=== PATIENT | male | born 2000 | race Caucasian/White ===

== ENCOUNTER 2024-01-11 20:13 | Observation (INO) | payer SELFPAY ==
[2024-01-11] MEDS ORDERED: Zofran 4 MG/2 ML VIAL ONE (20:56)
[2024-01-11] MEDS ORDERED: MORPHINE SULFATE 2 MG INJ ONE (20:56)
[2024-01-11] MEDS ORDERED: Sodium Chloride 0.9% 1000 ML 1,000 ML ONE (20:56)
[2024-01-11] MEDS: MORPHINE SULFATE 2 MG INJ IV ONE (21:01)
[2024-01-11] MEDS: Zofran 4 MG/2 ML VIAL IV ONE (21:01)
[2024-01-11] MEDS: Sodium Chloride 0.9% 1000 ML 1,000 ML IV STA (21:01)
[2024-01-11 21:05] LABS: Absolute Neutrophil Ct (ANC) 11.06 x10^3/uL (1.78-5.38); BASOPHIL % 0.6 % (0.2-1.2); Basophil (Absolute #) 0.08 x10^3/uL (0.01-0.08); Eosinophil % 0.1 % (0.8-7.0); Eosinophil (Absolute #) 0.01 x10^3/uL (0.04-0.54); Hematocrit 53.5 % (40.1-51.0); Hemoglobin 18.8 g/dL (13.7-17.5); IMMATURE GRAN # 0.06 x10^3u/L (0.001-0.031); IMMATURE GRAN % 0.5 % (0.001-0.429); Lymphocyte (Absolute #) 0.87 x10^3/uL (1.32-3.57); Lymphocytes % 6.9 % (21.8-53.1); Mean Cell Volume 90.1 fL (79.0-92.2); Mean Corpuscular Hemoglobin 31.6 pg (25.7-32.2); Mean Corpuscular Hgb Concent. 35.1 g/dL (32.3-36.5); Monocyte (Absolute #) 0.48 x10^3/uL (0.30-0.82); Monocytes % 3.8 % (5.3-12.2); Neutrophil % 88.1 % (34.0-67.9); Platelet Count 291 x10^3/uL (163-337); Red Blood Count 5.94 x10^6/uL (4.63-6.08); Red Cell Distribution Width 12.1 % (11.6-14.4); White Blood Count 12.6 x10^3/uL (4.23-9.07)
[2024-01-11 21:19] LABS: ALKALINE PHOSPHATASE 149 U/L (38-126); ANION GAP 35.8 MEQ/L (5-15); BLOOD UREA NITROGEN 28 mg/dL (9-20); CHLORIDE 97 mmol/L (98-107); CK-Creatinine Phosphokinase 84 U/L (55-170); Calcium 11.4 mg/dL (8.4-10.2); Creatinine 1 2.16 mg/dL (0.66-1.25); EST GLOMERULAR FILTRATION RATE 43.3 ML/MIN; Glucose 187 mg/dL (74-106); LIPASE 50 U/L (23-300); Potassium 4.6 mmol/L (3.5-5.1); SGOT/AST 49 U/L (17-59); SGPT/ALT 42 U/L (0-50); SODIUM 138 mmol/L (135-145); Total Protein 10.2 g/dL (6.3-8.2)
--- NOTE | 2024-01-11 21:24 | ERPHSYRPT ---
- History of Present Illness Time Seen by Provider: 01/11/24 20:25 Historian: patient Exam Limitations: no limitations Patient Subjective Stated Complaint: pt states he has been trying to cut weight for a fight tomorrow and after he started drinking and eating tonight, he got began vomiting and having abd cramping Triage Nursing Assessment: pt alert and oriented, answers questions approp. pt ambulates into room with steady gait noted. respirations nonlabored. abd soft, pt reports no tenderness with light palpation. bowel sounds hypo Physician History: 23yo m presents via private vehicle for vomiting that started roughly 1h [employer]. Pt reports he has been aggressively trying to lose weight for a wrestling match tomorrow for the past 2wks, states he lost 5lbs today by exercising vigorously while wearing trash bags to sweat more. Pt reports he attempted to drink some pedialyte just before he started vomiting, other than that he had not had any food and very limited water since 13:00 on 01/10/24. Pt reports some diffuse abdominal cramping and dry heaving. Pt reports his emesis was watery in nature, NBNB. Pt reports mild [place] and significant fatigue. Timing/Duration: today Activities at Onset: none Quality: cramping Abdominal Pain Onset Location: generalized abdomen Pain Radiation: no radiation Severity of Pain-Max: mild Severity of Pain-Current: mild Modifying Factors: Improves With: nothing Associated Symptoms: fatigue, nausea, vomiting, No chest pain, No fever/chills, No rash, No shortness of breath Previous symptoms: no prior history Allergies/Adverse Reactions: No Known Drug Allergies Allergy (Verified 01/11/24 20:55) Home Medications: No Reportable Medications [No Reported Medications] 01/11/24 [History] Hx Tetanus, Diphtheria Vaccination/Date Given: Yes Hx Influenza Vaccination/Date Given: No Hx Pneumococcal Vaccination/Date Given: No Immunizations Up to Date: Yes Travel Risk - International Travel Have you traveled outside of the country in past 3 weeks: No - Emerging Infectious Disease Are you exhibiting symptoms associated with any current EIDs: No - Review of Systems Constitutional: Fatigue Eyes: No Symptoms Ears, Nose, & Throat: No Symptoms Respiratory: No Symptoms Cardiac: No Symptoms Abdominal/Gastrointestinal: Abdominal Pain, Nausea, Vomiting Genitourinary Symptoms: No Symptoms Musculoskeletal: No Symptoms Neurological: No Symptoms - Past Medical History Pertinent Past Medical History: Yes - Past Surgical History Past Surgical History: No - Social History Smoking Status: Current every day smoker How long have you smoked: 6 yrs Exposure to second hand smoke: Yes Drug Use: none - Social Determinants of Health Will the patient participate in the screening: Declined to provide - Nursing Vital Signs Nursing Vital Signs: Initial Vital Signs Temperature 96.3 F 01/11/24 20:23 Pulse Rate 57 L 01/11/24 20:23 Respiratory Rate 20 01/11/24 20:23 Blood Pressure 150/100 01/11/24 20:23 O2 Sat by Pulse Oximetry 99 01/11/24 20:23 Pain Scale Pain Intensity 7 - Physical Exam General Appearance: no apparent distress, alert Eye Exam: PERRL/EOMI, eyes nml inspection Ears, Nose, Throat Exam: dry mucous membranes Respiratory Exam: normal breath sounds, lungs clear, airway intact, No chest tenderness, No respiratory distress Cardiovascular Exam: regular rate/rhythm, normal peripheral pulses, capillary refill >3 sec Gastrointestinal/Abdomen Exam: soft, normal bowel sounds, No tenderness, No dist ention, No mass, No guarding, No rebound, No hernia Neurologic Exam: alert, oriented x 3, cooperative Skin Exam: normal color, warm, dry SpO2 Interpretation: normal SpO2: 99 O2 Delivery: Room Air Ordered Tests: Active Orders 24 hr Category Date Time Status CBC W DIFF Stat Lab 01/11/24 20:50 Completed CK-Creatinine Phosphokinase Stat Lab 01/11/24 20:50 Completed CMP Stat Lab 01/11/24 20:50 Completed LIPASE Stat Lab 01/11/24 20:50 Completed UA W/RFX UR CULTURE Stat Lab 01/11/24 20:39 Ordered Medication Summary Generic Name Dose Route Start Last Admin Trade Name Freq PRN Reason Stop Dose Admin Sodium Chloride 1,000 mls @ 200 mls/hr 01/11/24 21:45 01/11/24 22:12 Sodium Chloride 0.9% 1000 Ml IV 02/10/24 21:44 200 mls/hr .Q5H MAXIMINO Administration Discontinued Medications Generic Name Dose Route Start Last Admin Trade Name Freq PRN Reason Stop Dose Admin Droperidol 1.25 mg 01/11/24 21:29 01/11/24 21:35 Droperidol 5 Mg/2 Ml Vial IV 01/11/24 21:30 1.25 mg STAT ONE Administration Droperidol Confirm 01/11/24 21:33 Droperidol 5 Mg/2 Ml Vial Administered 01/11/24 21:34 Dose 5 mg .ROUTE .STK-MED ONE Sodium Chloride 1,000 mls @ 999 mls/hr 01/11/24 20:38 01/11/24 21:01 Sodium Chloride 0.9% 1000 Ml IV 01/11/24 21:38 999 mls/hr .Q1H1M STA Administration Sodium Chloride Confirm 01/11/24 20:56 Sodium Chloride 0.9% 1000 Ml Administered 01/11/24 20:57 Dose 1,000 mls @ ud .ROUTE .STK-MED ONE Morphine Sulfate 2 mg 01/11/24 20:53 01/11/24 21:01 Morphine Sulfate 2 Mg/Ml Inj IV 01/11/24 20:54 2 mg STAT ONE Administration Morphine Sulfate Confirm 01/11/24 20:56 Morphine Sulfate 2 Mg/Ml Inj Administered 01/11/24 20:57 Dose 2 mg .ROUTE .STK-MED ONE Ondansetron HCl 4 mg 01/11/24 20:38 01/11/24 21:01 Ondansetron Hcl 4 Mg/2 Ml Vial IV 01/11/24 20:39 4 mg STAT ONE Administration Ondansetron HCl Confirm 01/11/24 20:56 Ondansetron Hcl 4 Mg/2 Ml Vial Administered 01/11/24 20:57 Dose 4 mg .ROUTE .STK-MED ONE Lab/Rad Data: Laboratory Result Diagrams 01/11/24 20:50 01/11/24 20:50 Laboratory Results 01/11/24 01/11/24 01/11/24 Range/Units 21:00 20:50 20:50 WBC 12.6 H (4.23-9.07) x10^3/uL RBC 5.94 (4.63-6.08) x10^6/uL Hgb 18.8 H (13.7-17.5) g/dL Hct 53.5 H (40.1-51.0) % MCV 90.1 (79.0-92.2) fL MCH 31.6 (25.7-32.2) pg MCHC 35.1 (32.3-36.5) g/dL RDW 12.1 (11.6-14.4) % Plt Count 291 (163-337) x10^3/uL MPV 11.0 (9.4-12.4) fL Gran % 88.1 H (34.0-67.9) % Immature Gran % (Auto) 0.5 H (0.001-0.429) % Nucleat RBC Rel Count 0.0 (0.00-0.2) % Eos # (Auto) 0.01 L (0.04-0.54) x10^3/uL Immature Gran # (Auto) 0.06 H (0.001-0.031) x10^3u/L Absolute Lymphs (auto) 0.87 L (1.32-3.57) x10^3/uL Absolute Monos (auto) 0.48 (0.30-0.82) x10^3/uL Absolute Nucleated RBC 0.00 (0.00-0.012) x10^3u/L Lymphocytes % 6.9 L (21.8-53.1) % Monocytes % 3.8 L (5.3-12.2) % Eosinophils % 0.1 L (0.8-7.0) % Basophils % 0.6 (0.2-1.2) % Absolute Granulocytes 11.06 H (1.78-5.38) x10^3/uL Basophils # 0.08 (0.01-0.08) x10^3/uL Sodium 138 (135-145) mmol/L Potassium 4.6 (3.5-5.1) mmol/L Chloride 97 L (98-107) mmol/L Carbon Dioxide 11 L* (22-30) mmol/L Anion Gap 35.8 H (5-15) MEQ/L BUN 28 H (9-20) mg/dL Creatinine 2.16 H (0.66-1.25) mg/dL Estimated GFR 43.3 ML/MIN Glucose 187 H (74-106) mg/dL Calcium 11.4 H (8.4-10.2) mg/dL Total Bilirubin 2.00 H (0.2-1.3) mg/dL AST 49 (17-59) U/L ALT 42 (0-50) U/L Alkaline Phosphatase 149 H (38-126) U/L Creatine Kinase 84 (55-170) U/L Serum Total Protein 10.2 H (6.3-8.2) g/dL Albumin > 6.0 H (3.5-5.0) g/dL Lipase 50 (23-300) U/L Influenza Type A Ag NEGATIVE (NEGATIVE) Influenza Type B Ag NEGATIVE (NEGATIVE) RSV (PCR) NEGATIVE (NEGATIVE) SARS-CoV-2 (PCR) NEGATIVE (NEGATIVE) - Progress Progress: improved Progress Note: 01/11/24 22:13 labs suggestive of significant dehydration CK not suggestive of rhabdomyolisis mild improvement w/ fluids and droperidol i discussed admission to obs for continued IV fluids w/ Dr Kim who is willing to accept pt agreeable, i recommend that pt not participate in his match tomorrow 2 his current medical condition 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
[2024-01-11 21:31] LABS: ALBUMIN > 6.0 g/dL (3.5-5.0); Carbon Dioxide 11 mmol/L (22-30)
[2024-01-11 21:50] LABS: INFLUENZA A NEGATIVE (NEGATIVE); INFLUENZA B NEGATIVE (NEGATIVE); RESPIRATORY SYNCTIAL VIRUS NEGATIVE (NEGATIVE); SARS-CoV-2 Xpert Express NEGATIVE (NEGATIVE)
[2024-01-11] MEDS: Sodium Chloride 0.9% 1000 ML 1,000 ML IV SCH (22:12)
--- NOTE | 2024-01-11 23:50 | PCM.HP ---
History of Present Illness - Chief Complaint Chief Complaint: dehydration; nausea/vomiting Date: 01/11/24 History of Present Illness: Mr. SALTER is a 23 year old male without significant past medical history who was preparing for a MMA fight by trying to drop five pounds rapidly so he was exercising while wearing a trash bag and not eating/drinking much. He presented to the ER with complaints of tremors, and was found to have an elevated creatinine of 2.2 associated with a bicarb of 11. Bilirubin was high, calcium was 11.4 and albumin > 6. He is resting in bed, has some vague lower abdominal pain, associated with significant nausea and vomiting, but no diarrhea. No dysuria, hematuria or foamy urine. He does not take creatine supplements or NSAIDs regularly. - Review of Systems Constitutional: Chills, No Fever Ears, Nose, & Throat: No Epistaxis Respiratory: No Cough, No Orthopnea, No Short Of Breath Cardiac: No Chest Pain, No Edema Abdominal/Gastrointestinal: Abdominal Pain, Nausea, Vomiting Genitourinary Symptoms: No Dysuria, No Frequency, No Hematuria Musculoskeletal: Myalgias Skin: No Symptoms Neurological: Tremors Psychological: No Alcohol Abuse, No Drug Abuse Endocrine: No Cold Intolerance, No Excessive Sweating Hematologic/Lymphatic: No Easy Bruising Medications & Allergies Home Medications: Home Medication List No Reportable Medications [No Reported Medications] 01/11/24 [History Confirmed 01/11/24] Allergies/Adverse Reactions: Allergies Allergy/AdvReac Type Severity Reaction Status Date / Time No Known Drug Allergies Allergy Verified 01/11/24 20:55 - Past Medical History Past Medical History: Yes - Past Surgical History Past Surgical History: No - Social History Smoking Status: Current every day smoker How long have you smoked: 6 Exposure to second hand smoke: Yes Alcohol: Occasionally Drug Use: none - Social Determinants of Health Will the patient participate in the screening: Yes Do you worry about a steady place to live?: No Do you have any problems with any of the following?: No known problems In the past 12 months,have you had to go without utilities?: No Have you or anyone in your house had to go without enough: No Transportation Issues: No Has anyone in your support network made you feel unsafe?: No Does the patient want assistance with any of the above?: No - Physical Exam Vital Signs: Vital Signs - 24 hr Temp Pulse Resp BP BP Pulse Ox 01/11/24 23:20 97.3 F 61 22 135/77 95 01/11/24 22:16 99 01/11/24 22:02 61 16 124/35 100 01/11/24 21:31 46 L 10 L 160/82 99 01/11/24 21:00 57 L 24 158/87 100 01/11/24 20:31 52 L 19 144/83 100 01/11/24 20:23 96.3 F 57 L 20 150/100 99 General Appearance: mild distress Neurologic Exam: alert, oriented x 3, cooperative Ears, Nose, Throat Exam: dry mucous membranes Neck Exam: supple Respiratory Exam: No respiratory distress Cardiovascular Exam: regular rate/rhythm Gastrointestinal/Abdomen Exam: soft, guarding Extremity Exam: No pedal edema, No swelling Skin Exam: warm, dry Results - Labs Lab/Micro Results: Lab Results-Last 24 Hours 01/11/24 01/11/24 01/11/24 Range/Units 20:50 20:50 21:00 WBC 12.6 H (4.23-9.07) x10^3/uL RBC 5.94 (4.63-6.08) x10^6/uL Hgb 18.8 H (13.7-17.5) g/dL Hct 53.5 H (40.1-51.0) % MCV 90.1 (79.0-92.2) fL MCH 31.6 (25.7-32.2) pg MCHC 35.1 (32.3-36.5) g/dL RDW 12.1 (11.6-14.4) % Plt Count 291 (163-337) x10^3/uL MPV 11.0 (9.4-12.4) fL Gran % 88.1 H (34.0-67.9) % Immature Gran % (Auto) 0.5 H (0.001-0.429) % Nucleat RBC Rel Count 0.0 (0.00-0.2) % Eos # (Auto) 0.01 L (0.04-0.54) x10^3/uL Immature Gran # (Auto) 0.06 H (0.001-0.031) x10^3u/L Absolute Lymphs (auto) 0.87 L (1.32-3.57) x10^3/uL Absolute Monos (auto) 0.48 (0.30-0.82) x10^3/uL Absolute Nucleated RBC 0.00 (0.00-0.012) x10^3u/L Lymphocytes % 6.9 L (21.8-53.1) % Monocytes % 3.8 L (5.3-12.2) % Eosinophils % 0.1 L (0.8-7.0) % Basophils % 0.6 (0.2-1.2) % Absolute Granulocytes 11.06 H (1.78-5.38) x10^3/uL Basophils # 0.08 (0.01-0.08) x10^3/uL Sodium 138 (135-145) mmol/L Potassium 4.6 (3.5-5.1) mmol/L Chloride 97 L (98-107) mmol/L Carbon Dioxide 11 L* (22-30) mmol/L Anion Gap 35.8 H (5-15) MEQ/L BUN 28 H (9-20) mg/dL Creatinine 2.16 H (0.66-1.25) mg/dL Estimated GFR 43.3 ML/MIN Glucose 187 H (74-106) mg/dL Calcium 11.4 H (8.4-10.2) mg/dL Total Bilirubin 2.00 H (0.2-1.3) mg/dL AST 49 (17-59) U/L ALT 42 (0-50) U/L Alkaline Phosphatase 149 H (38-126) U/L Creatine Kinase 84 (55-170) U/L Serum Total Protein 10.2 H (6.3-8.2) g/dL Albumin > 6.0 H (3.5-5.0) g/dL Lipase 50 (23-300) U/L Influenza Type A Ag NEGATIVE (NEGATIVE) Influenza Type B Ag NEGATIVE (NEGATIVE) RSV (PCR) NEGATIVE (NEGATIVE) SARS-CoV-2 (PCR) NEGATIVE (NEGATIVE) Assessment/Plan (1) Acute kidney injury Current Visit: Yes Status: Acute Assessment & Plan: Likely from prerenal azotemia and effects of hypercalcemia - creatinine elevated at 2.2 1. IVFs 2. Check urine lytes urine creatinine 3. Renal u/s 4. Follow I/Os 5. Watch electrolytes, creatinine closely Code(s): N17.9 - ACUTE KIDNEY FAILURE, UNSPECIFIED (2) Acute metabolic acidosis Current Visit: Yes Status: Acute Assessment & Plan: Secondary to NAT versus myalgias 1. Switch IVFs from NS to bicarb drip 2. Trend lactate 3. ABG prn Code(s): E87.21 - ACUTE METABOLIC ACIDOSIS (3) Hypercalcemia Current Visit: Yes Status: Acute Assessment & Plan: Likely from dehydration, doubt malignancy or milk alkali syndrome 1. IVFs 2. Check ionized calcium 3. Check PTH 4. Monitor electrolytes closely Code(s): E83.52 - HYPERCALCEMIA (4) Vomiting Current Visit: Yes Status: Acute Qualifiers: Vomiting type: unspecified Nausea presence: with nausea Qualified Code(s): R11.2 - Nausea with vomiting, unspecified Assessment & Plan: Likely from dehydration, stress, anxiety 1. IVFs 2. Antiemetics 3. GI/DVT prophylaxis Code(s): R11.10 - VOMITING, UNSPECIFIED Telemedicine Encounter - Telemedicine Encounter Telemedicine Encounter: "The entirety of this encounter was performed via Telemedicine" This visit was performed using real-time audio and video connection between my location and thepatients locationwith the assistance of a surrogateat the patients location. Written or verbal consent was obtained from the patient/guardian to perform this [facility]. Any patient questions regarding the telemedicine interaction were answered.
[2024-01-11] MEDS ORDERED: TYLENOL 325 MG PO PRN (23:59)
[2024-01-12] MEDS ORDERED: SODIUM BICARBONATE 50 MEQ/50 ML ABBOJECT IV ONE (00:10)
[2024-01-12] MEDS ORDERED: Dextrose 5%/Water IV Soln. 1000 ML 1,000 ML IV ONE (00:12)
[2024-01-12] MEDS: PHENERGAN 25 MG PO PRN (00:13)
[2024-01-12] MEDS: Sodium Bicarbonate 50 MEQ/50 ML VIAL*** 150 MEQ in Dextrose 5%/Water IV Soln. 1000 ML 1... IV SCH (00:15)
[2024-01-12 06:02] LABS: Absolute Neutrophil Ct (ANC) 6.58 x10^3/uL (1.78-5.38); BASOPHIL % 0.1 % (0.2-1.2); Basophil (Absolute #) 0.01 x10^3/uL (0.01-0.08); Eosinophil (Absolute #) 0 x10^3/uL (0.04-0.54); Hematocrit 44.6 % (40.1-51.0); Hemoglobin 15.2 g/dL (13.7-17.5); IMMATURE GRAN # 0.01 x10^3u/L (0.001-0.031); IMMATURE GRAN % 0.1 % (0.001-0.429); Lymphocyte (Absolute #) 0.65 x10^3/uL (1.32-3.57); Lymphocytes % 8.6 % (21.8-53.1); Mean Cell Volume 91.8 fL (79.0-92.2); Mean Corpuscular Hemoglobin 31.3 pg (25.7-32.2); Mean Corpuscular Hgb Concent. 34.1 g/dL (32.3-36.5); Mean Platelet Volume 10.2 fL (9.4-12.4); Monocyte (Absolute #) 0.35 x10^3/uL (0.30-0.82); Monocytes % 4.6 % (5.3-12.2); Neutrophil % 86.6 % (34.0-67.9); Platelet Count 237 x10^3/uL (163-337); Red Blood Count 4.86 x10^6/uL (4.63-6.08); Red Cell Distribution Width 12.7 % (11.6-14.4); White Blood Count 7.6 x10^3/uL (4.23-9.07)
[2024-01-12 06:22] LABS: ALBUMIN 4.8 g/dL (3.5-5.0); ANION GAP 18.5 MEQ/L (5-15); Calcium 9.3 mg/dL (8.4-10.2); Creatinine 1 1.39 mg/dL (0.66-1.25); EST GLOMERULAR FILTRATION RATE 73.5 ML/MIN; Potassium 4.5 mmol/L (3.5-5.1); Total Protein 7.5 g/dL (6.3-8.2)
[2024-01-12] MEDS: Sodium Chloride 0.9% 1000 ML 1,000 ML IV SCH (08:55)
[2024-01-12] MEDS: Protonix 40MG Tablet PO SCH (10:31)
[2024-01-12] MEDS: ENOXAPARIN SODIUM SQ SCH (10:31)
[2024-01-12 11:53] VITALS: BP 110/57; PULSE 87; RESP 17; TEMP 98.1; O2SAT 100
--- NOTE | 2024-01-12 12:43 | PCM.NOTE ---
Date and Time: 01/12/24 1238 Subjective Assessment: 01/12/24 Mr. SALTER is a 23 year old male without significant past medical history. He was preparing for a MMA fight by trying to drop five pounds rapidly so he was exercising while wearing a trash bag and not eating/drinking much. He presented to the ER on 01/10 with complaints of tremors, and was found to have an elevated creatinine of 2.2 associated with a bicarb of 11. Bilirubin was high, calcium was 11.4 and albumin > 6. He c/o some vague lower abdominal pain, associated with significant nausea and vomiting, but no diarrhea. No dysuria, hematuria or foamy urine. He does not take creatine supplements or NSAIDs regularly. Vomiting resolved today. He had a temp of 99.2 last night and UA pending. Labs improved today overall. However creat 1.39 and anion gap 18.5. He continues to require IVF. Discussed and recommended he stay another night and possibly d/c tomorrow if labs improved. He wanted to leave today but understands the need to stay. He continues to have chills intermittently. He denies CP, SOB, Abd. pain, N/V/D today. - Review of Systems Constitutional: No Fever, No Chills Eyes: No Symptoms Ears, Nose, & Throat: No Symptoms Respiratory: No Cough, No Short Of Breath Cardiac: No Chest Pain, No Edema, No Syncope Abdominal/Gastrointestinal: No Abdominal Pain, No Nausea, No Vomiting, No Diarrhea Genitourinary Symptoms: No Dysuria Musculoskeletal: No Back Pain, No Neck Pain Skin: No Rash Neurological: No Dizziness, No Focal Weakness, No Sensory Changes Psychological: No Symptoms Endocrine: No Symptoms Hematologic/Lymphatic: No Symptoms Immunological/Allergic: No Symptoms Objective Exam General Appearance: no apparent distress, alert Neurologic Exam: alert, oriented x 3, cooperative, normal mood/affect, nml cerebellar function, sensation nml, No motor deficits Skin Exam: normal color, warm, dry Eye Exam: PERRL, EOMI, eyes nml inspection Ears, Nose, Throat Exam: normal ENT inspection, pharynx normal, moist mucous membranes Neck Exam: normal inspection, non-tender, supple, full range of motion Respiratory Exam: normal breath sounds, lungs clear, No respiratory distress Cardiovascular Exam: regular rate/rhythm, normal heart sounds Gastrointestinal/Abdomen Exam: soft, No tenderness, No mass Extremity Exam: normal inspection, normal range of motion Back Exam: normal inspection, normal range of motion, No CVA tenderness, No vertebral tenderness Male Genitalia Exam: deferred Rectal Exam: deferred Objective Data Vital Signs: Vital Signs - 24 hr Temp Pulse Resp BP BP Pulse Ox 01/12/24 11:53 98.1 F 87 17 110/57 100 01/12/24 07:37 98.7 F 75 18 108/55 96 01/12/24 03:59 99.2 F 62 17 102/55 98 01/11/24 23:48 97.3 F 61 22 135/77 95 01/11/24 23:20 97.3 F 61 22 135/77 95 01/11/24 22:16 99 01/11/24 22:02 61 16 124/35 100 01/11/24 21:31 46 L 10 L 160/82 99 01/11/24 21:00 57 L 24 158/87 100 01/11/24 20:31 52 L 19 144/83 100 01/11/24 20:23 96.3 F 57 L 20 150/100 99 Pain Assessment - Last Documented Pain Intensity 0 Pain Scale Used 0-10 Pain Scale Intake and Output: Intake & Output 01/10/24 01/11/24 01/12/24 01/13/24 11:59 11:59 11:59 11:59 Intake Total 1868 Balance 1868 Weight 64.5 kg Lab Results: Lab Results-Last 24 Hours 01/11/24 01/11/24 01/11/24 Range/Units 20:50 20:50 21:00 WBC 12.6 H (4.23-9.07) x10^3/uL RBC 5.94 (4.63-6.08) x10^6/uL Hgb 18.8 H (13.7-17.5) g/dL Hct 53.5 H (40.1-51.0) % MCV 90.1 (79.0-92.2) fL MCH 31.6 (25.7-32.2) pg MCHC 35.1 (32.3-36.5) g/dL RDW 12.1 (11.6-14.4) % Plt Count 291 (163-337) x10^3/uL MPV 11.0 (9.4-12.4) fL Gran % 88.1 H (34.0-67.9) % Immature Gran % (Auto) 0.5 H (0.001-0.429) % Nucleat RBC Rel Count 0.0 (0.00-0.2) % Eos # (Auto) 0.01 L (0.04-0.54) x10^3/uL Immature Gran # (Auto) 0.06 H (0.001-0.031) x10^3u/L Absolute Lymphs (auto) 0.87 L (1.32-3.57) x10^3/uL Absolute Monos (auto) 0.48 (0.30-0.82) x10^3/uL Absolute Nucleated RBC 0.00 (0.00-0.012) x10^3u/L Lymphocytes % 6.9 L (21.8-53.1) % Monocytes % 3.8 L (5.3-12.2) % Eosinophils % 0.1 L (0.8-7.0) % Basophils % 0.6 (0.2-1.2) % Absolute Granulocytes 11.06 H (1.78-5.38) x10^3/uL Basophils # 0.08 (0.01-0.08) x10^3/uL Sodium 138 (135-145) mmol/L Potassium 4.6 (3.5-5.1) mmol/L Chloride 97 L (98-107) mmol/L Carbon Dioxide 11 L* (22-30) mmol/L Anion Gap 35.8 H (5-15) MEQ/L BUN 28 H (9-20) mg/dL Creatinine 2.16 H (0.66-1.25) mg/dL Estimated GFR 43.3 ML/MIN Glucose 187 H (74-106) mg/dL Calcium 11.4 H (8.4-10.2) mg/dL Total Bilirubin 2.00 H (0.2-1.3) mg/dL AST 49 (17-59) U/L ALT 42 (0-50) U/L Alkaline Phosphatase 149 H (38-126) U/L Creatine Kinase 84 (55-170) U/L Serum Total Protein 10.2 H (6.3-8.2) g/dL Albumin > 6.0 H (3.5-5.0) g/dL Lipase 50 (23-300) U/L Influenza Type A Ag NEGATIVE (NEGATIVE) Influenza Type B Ag NEGATIVE (NEGATIVE) RSV (PCR) NEGATIVE (NEGATIVE) SARS-CoV-2 (PCR) NEGATIVE (NEGATIVE) 01/12/24 01/12/24 Range/Units 05:26 05:26 WBC 7.6 (4.23-9.07) x10^3/uL RBC 4.86 (4.63-6.08) x10^6/uL Hgb 15.2 (13.7-17.5) g/dL Hct 44.6 (40.1-51.0) % MCV 91.8 (79.0-92.2) fL MCH 31.3 (25.7-32.2) pg MCHC 34.1 (32.3-36.5) g/dL RDW 12.7 (11.6-14.4) % Plt Count 237 (163-337) x10^3/uL MPV 10.2 (9.4-12.4) fL Gran % 86.6 H (34.0-67.9) % Immature Gran % (Auto) 0.1 (0.001-0.429) % Nucleat RBC Rel Count 0.0 (0.00-0.2) % Eos # (Auto) 0 L (0.04-0.54) x10^3/uL Immature Gran # (Auto) 0.01 (0.001-0.031) x10^3u/L Absolute Lymphs (auto) 0.65 L (1.32-3.57) x10^3/uL Absolute Monos (auto) 0.35 (0.30-0.82) x10^3/uL Absolute Nucleated RBC 0.00 (0.00-0.012) x10^3u/L Lymphocytes % 8.6 L (21.8-53.1) % Monocytes % 4.6 L (5.3-12.2) % Eosinophils % 0.0 L (0.8-7.0) % Basophils % 0.1 L (0.2-1.2) % Absolute Granulocytes 6.58 H (1.78-5.38) x10^3/uL Basophils # 0.01 (0.01-0.08) x10^3/uL Sodium 137 (135-145) mmol/L Potassium 4.5 (3.5-5.1) mmol/L Chloride 96 L (98-107) mmol/L Carbon Dioxide 27 (22-30) mmol/L Anion Gap 18.5 H (5-15) MEQ/L BUN 28 H (9-20) mg/dL Creatinine 1.39 H (0.66-1.25) mg/dL Estimated GFR 73.5 ML/MIN Glucose 144 H (74-106) mg/dL Calcium 9.3 D (8.4-10.2) mg/dL Total Bilirubin 1.00 (0.2-1.3) mg/dL AST 34 (17-59) U/L ALT 18 (0-50) U/L Alkaline Phosphatase 87 (38-126) U/L Creatine Kinase (55-170) U/L Serum Total Protein 7.5 (6.3-8.2) g/dL Albumin 4.8 (3.5-5.0) g/dL Lipase (23-300) U/L Influenza Type A Ag (NEGATIVE) Influenza Type B Ag (NEGATIVE) RSV (PCR) (NEGATIVE) SARS-CoV-2 (PCR) (NEGATIVE) Assessment/Plan (1) Acute kidney injury Current Visit: Yes Status: Acute Assessment & Plan: Likely from prerenal azotemia and effects of hypercalcemia - creatinine elevated at 2.2 - IVFs - Check urine lytes urine creatinine - Follow I/Os - Watch electrolytes, creatinine closely 01/11 - Creat 1.39- improved - Continue IVF Code(s): N17.9 - ACUTE KIDNEY FAILURE, UNSPECIFIED (2) Acute metabolic acidosis Current Visit: Yes Status: Acute Assessment & Plan: Secondary to NAT versus myalgias 1. Switch IVFs from NS to bicarb drip 2. ABG prn / - Bicarb gtt stopped - CO2 WNL - Cont IVF Code(s): E87.21 - ACUTE METABOLIC ACIDOSIS (3) Dehydration Current Visit: Yes Status: Acute Assessment & Plan: - Anion gap 18.5 - Cont IVF Code(s): E86.0 - DEHYDRATION (4) Hypercalcemia Current Visit: Yes Status: Resolved Assessment & Plan: - resolved Code(s): E83.52 - HYPERCALCEMIA (5) Vomiting Current Visit: Yes Status: Resolved Qualifiers: Vomiting type: unspecified Nausea presence: with nausea Qualified Code(s): R11.2 - Nausea with vomiting, unspecified Assessment & Plan: - resolved - Phenergan PRN VTE: SCD's Next of KIN: Mariano Chan [phone] Code status: Full D/C plan: tomorrow Code(s): R11.10 - VOMITING, UNSPECIFIED
[2024-01-12 13:56] LABS: Hematocrit 43.5 % (40.1-51.0); Hemoglobin 14.9 g/dL (13.7-17.5); Mean Cell Volume 92.9 fL (79.0-92.2); Mean Corpuscular Hemoglobin 31.8 pg (25.7-32.2); Mean Corpuscular Hgb Concent. 34.3 g/dL (32.3-36.5); Mean Platelet Volume 9.8 fL (9.4-12.4); Platelet Count 212 x10^3/uL (163-337); Red Blood Count 4.68 x10^6/uL (4.63-6.08); Red Cell Distribution Width 12.5 % (11.6-14.4); White Blood Count 8.5 x10^3/uL (4.23-9.07)
[2024-01-12 14:08] LABS: ALBUMIN 4.6 g/dL (3.5-5.0); ANION GAP 14.1 MEQ/L (5-15); BILIRUBIN,TOTAL 1.1 mg/dL (0.2-1.3); Calcium 9.2 mg/dL (8.4-10.2); Creatinine 1 1.11 mg/dL (0.66-1.25); EST GLOMERULAR FILTRATION RATE 96.3 ML/MIN; Potassium 4.1 mmol/L (3.5-5.1); Total Protein 7.2 g/dL (6.3-8.2)
--- NOTE | 2024-01-12 14:40 | PCM.DS ---
Discharge Summary Date of Admission: 01/11/24 22:32 Date of Discharge: 01/12/24 Admitting Physician: JOANNA HERNANDEZ MD Primary Care Provider: NO FAMILY DOCTOR Allergies Allergies No Known Drug Allergies Allergy (Verified 01/11/24 20:55) Hospital Summary - Hospital Course Hospital Course: 01/12/24 Mr. SALTER is a 23 year old male without significant past medical history. He was preparing for a MMA fight by trying to drop five pounds rapidly so he was exercising while wearing a trash bag and not eating/drinking much. He presented to the ER on 01/10 with complaints of tremors, and was found to have an elevated creatinine of 2.2 associated with a bicarb of 11. Bilirubin was high, calcium was 11.4 and albumin > 6. He c/o some vague lower abdominal pain, associated with significant nausea and vomiting, but no diarrhea. No dysuria, hematuria or foamy urine. He does not take creatine supplements or NSAIDs regularly. Vomiting resolved today. He had a temp of 99.2 last night and UA pending. Labs improved today overall. However creat 1.39 and anion gap 18.5. He continues to require IVF. Discussed and recommended he stay another night and possibly d/c tomorrow if labs improved. He wanted to leave today but understands the need to stay. He continues to have chills intermittently. He denies CP, SOB, Abd. pain, N/V/D today. Repeat labs this afternoon non-concerning and pt states he needs to leave today. Ok to d/c at this time. - Vitals & Intake/Output Vital Signs: Vital Signs Temperature 98.1 F 01/12/24 11:53 Pulse Rate 87 01/12/24 11:53 Respiratory Rate 17 01/12/24 11:53 Blood Pressure 110/57 01/12/24 11:53 O2 Sat by Pulse Oximetry 100 01/12/24 11:53 Intake & Output: Intake & Output 01/10/24 01/11/24 01/12/24 01/13/24 11:59 11:59 11:59 11:59 Intake Total 1868 140 Balance 1868 140 Weight 64.5 kg - Lab Result Diagrams: 01/12/24 13:45 01/12/24 13:45 Lab Results-Last 24 Hrs: Lab Results-Last 24 Hours 01/11/24 01/11/24 01/11/24 Range/Units 20:50 20:50 21:00 WBC 12.6 H (4.23-9.07) x10^3/uL RBC 5.94 (4.63-6.08) x10^6/uL Hgb 18.8 H (13.7-17.5) g/dL Hct 53.5 H (40.1-51.0) % MCV 90.1 (79.0-92.2) fL MCH 31.6 (25.7-32.2) pg MCHC 35.1 (32.3-36.5) g/dL RDW 12.1 (11.6-14.4) % Plt Count 291 (163-337) x10^3/uL MPV 11.0 (9.4-12.4) fL Gran % 88.1 H (34.0-67.9) % Immature Gran % (Auto) 0.5 H (0.001-0.429) % Nucleat RBC Rel Count 0.0 (0.00-0.2) % Eos # (Auto) 0.01 L (0.04-0.54) x10^3/uL Immature Gran # (Auto) 0.06 H (0.001-0.031) x10^3u/L Absolute Lymphs (auto) 0.87 L (1.32-3.57) x10^3/uL Absolute Monos (auto) 0.48 (0.30-0.82) x10^3/uL Absolute Nucleated RBC 0.00 (0.00-0.012) x10^3u/L Lymphocytes % 6.9 L (21.8-53.1) % Monocytes % 3.8 L (5.3-12.2) % Eosinophils % 0.1 L (0.8-7.0) % Basophils % 0.6 (0.2-1.2) % Absolute Granulocytes 11.06 H (1.78-5.38) x10^3/uL Basophils # 0.08 (0.01-0.08) x10^3/uL Sodium 138 (135-145) mmol/L Potassium 4.6 (3.5-5.1) mmol/L Chloride 97 L (98-107) mmol/L Carbon Dioxide 11 L* (22-30) mmol/L Anion Gap 35.8 H (5-15) MEQ/L BUN 28 H (9-20) mg/dL Creatinine 2.16 H (0.66-1.25) mg/dL Estimated GFR 43.3 ML/MIN Glucose 187 H (74-106) mg/dL Calcium 11.4 H (8.4-10.2) mg/dL Total Bilirubin 2.00 H (0.2-1.3) mg/dL AST 49 (17-59) U/L ALT 42 (0-50) U/L Alkaline Phosphatase 149 H (38-126) U/L Creatine Kinase 84 (55-170) U/L Serum Total Protein 10.2 H (6.3-8.2) g/dL Albumin > 6.0 H (3.5-5.0) g/dL Lipase 50 (23-300) U/L Influenza Type A Ag NEGATIVE (NEGATIVE) Influenza Type B Ag NEGATIVE (NEGATIVE) RSV (PCR) NEGATIVE (NEGATIVE) SARS-CoV-2 (PCR) NEGATIVE (NEGATIVE) 01/12/24 01/12/24 01/12/24 Range/Units 05:26 05:26 13:45 WBC 7.6 8.5 (4.23-9.07) x10^3/uL RBC 4.86 4.68 (4.63-6.08) x10^6/uL Hgb 15.2 14.9 (13.7-17.5) g/dL Hct 44.6 43.5 (40.1-51.0) % MCV 91.8 92.9 H (79.0-92.2) fL MCH 31.3 31.8 (25.7-32.2) pg MCHC 34.1 34.3 (32.3-36.5) g/dL RDW 12.7 12.5 (11.6-14.4) % Plt Count 237 212 (163-337) x10^3/uL MPV 10.2 9.8 (9.4-12.4) fL Gran % 86.6 H (34.0-67.9) % Immature Gran % (Auto) 0.1 (0.001-0.429) % Nucleat RBC Rel Count 0.0 (0.00-0.2) % Eos # (Auto) 0 L (0.04-0.54) x10^3/uL Immature Gran # (Auto) 0.01 (0.001-0.031) x10^3u/L Absolute Lymphs (auto) 0.65 L (1.32-3.57) x10^3/uL Absolute Monos (auto) 0.35 (0.30-0.82) x10^3/uL Absolute Nucleated RBC 0.00 (0.00-0.012) x10^3u/L Lymphocytes % 8.6 L (21.8-53.1) % Monocytes % 4.6 L (5.3-12.2) % Eosinophils % 0.0 L (0.8-7.0) % Basophils % 0.1 L (0.2-1.2) % Absolute Granulocytes 6.58 H (1.78-5.38) x10^3/uL Basophils # 0.01 (0.01-0.08) x10^3/uL Sodium 137 (135-145) mmol/L Potassium 4.5 (3.5-5.1) mmol/L Chloride 96 L (98-107) mmol/L Carbon Dioxide 27 (22-30) mmol/L Anion Gap 18.5 H (5-15) MEQ/L BUN 28 H (9-20) mg/dL Creatinine 1.39 H (0.66-1.25) mg/dL Estimated GFR 73.5 ML/MIN Glucose 144 H (74-106) mg/dL Calcium 9.3 D (8.4-10.2) mg/dL Total Bilirubin 1.00 (0.2-1.3) mg/dL AST 34 (17-59) U/L ALT 18 (0-50) U/L Alkaline Phosphatase 87 (38-126) U/L Creatine Kinase (55-170) U/L Serum Total Protein 7.5 (6.3-8.2) g/dL Albumin 4.8 (3.5-5.0) g/dL Lipase (23-300) U/L Influenza Type A Ag (NEGATIVE) Influenza Type B Ag (NEGATIVE) RSV (PCR) (NEGATIVE) SARS-CoV-2 (PCR) (NEGATIVE) 01/12/24 Range/Units 13:45 WBC (4.23-9.07) x10^3/uL RBC (4.63-6.08) x10^6/uL Hgb (13.7-17.5) g/dL Hct (40.1-51.0) % MCV (79.0-92.2) fL MCH (25.7-32.2) pg MCHC (32.3-36.5) g/dL RDW (11.6-14.4) % Plt Count (163-337) x10^3/uL MPV (9.4-12.4) fL Gran % (34.0-67.9) % Immature Gran % (Auto) (0.001-0.429) % Nucleat RBC Rel Count (0.00-0.2) % Eos # (Auto) (0.04-0.54) x10^3/uL Immature Gran # (Auto) (0.001-0.031) x10^3u/L Absolute Lymphs (auto) (1.32-3.57) x10^3/uL Absolute Monos (auto) (0.30-0.82) x10^3/uL Absolute Nucleated RBC (0.00-0.012) x10^3u/L Lymphocytes % (21.8-53.1) % Monocytes % (5.3-12.2) % Eosinophils % (0.8-7.0) % Basophils % (0.2-1.2) % Absolute Granulocytes (1.78-5.38) x10^3/uL Basophils # (0.01-0.08) x10^3/uL Sodium 137 (135-145) mmol/L Potassium 4.1 (3.5-5.1) mmol/L Chloride 98 (98-107) mmol/L Carbon Dioxide 29 (22-30) mmol/L Anion Gap 14.1 (5-15) MEQ/L BUN 21 H (9-20) mg/dL Creatinine 1.11 (0.66-1.25) mg/dL Estimated GFR 96.3 ML/MIN Glucose 104 (74-106) mg/dL Calcium 9.2 (8.4-10.2) mg/dL Total Bilirubin 1.10 (0.2-1.3) mg/dL AST 34 (17-59) U/L ALT 19 (0-50) U/L Alkaline Phosphatase 87 (38-126) U/L Creatine Kinase (55-170) U/L Serum Total Protein 7.2 (6.3-8.2) g/dL Albumin 4.6 (3.5-5.0) g/dL Lipase (23-300) U/L Influenza Type A Ag (NEGATIVE) Influenza Type B Ag (NEGATIVE) RSV (PCR) (NEGATIVE) SARS-CoV-2 (PCR) (NEGATIVE) - Procedures and Test Procedures and Tests throughout Hospitalization: Therapy Orders & Screens 01/11/24 23:20 Smoking Cessation Education ONCE Comment: Diagnosis: dehydration; nausea/vomiting Smoking Status: Current every day smoker How long have you smoked: 6 Have you smoked in the past 12 months: Yes Do you dip or chew tobacco: No Discharge Exam General Appearance: no apparent distress, alert Neurologic Exam: alert, oriented x 3, cooperative, normal mood/affect, nml cerebellar function, sensation nml, No motor deficits Eye Exam: PERRL, EOMI, eyes nml inspection Ears, Nose, Throat Exam: normal ENT inspection, pharynx normal, moist mucous membranes Neck Exam: normal inspection, non-tender, supple, full range of motion Respiratory Exam: normal breath sounds, lungs clear, No respiratory distress Cardiovascular Exam: regular rate/rhythm, normal heart sounds Gastrointestinal/Abdomen Exam: soft, No tenderness, No mass Male Genitalia Exam: deferred Rectal Exam: deferred Back Exam: normal inspection, normal range of motion, No CVA tenderness, No vert ebral tenderness Extremity Exam: normal inspection, normal range of motion Skin Exam: normal color, warm, dry Final Diagnosis/Problem List - Final Discharge Diagnosis/Problem (1) Acute kidney injury Current Visit: Yes Status: Acute Code(s): N17.9 - ACUTE KIDNEY FAILURE, UNSPECIFIED (2) Acute metabolic acidosis Current Visit: Yes Status: Acute Code(s): E87.21 - ACUTE METABOLIC ACIDOSIS (3) Dehydration Current Visit: Yes Status: Acute Code(s): E86.0 - DEHYDRATION (4) Hypercalcemia Current Visit: Yes Status: Resolved Code(s): E83.52 - HYPERCALCEMIA (5) Vomiting Current Visit: Yes Status: Resolved Assessment & Plan: (1) Acute kidney injury Current Visit: Yes Status: Acute Assessment & Plan: Likely from prerenal azotemia and effects of hypercalcemia - creatinine elevated at 2.2 - IVFs - Check urine lytes urine creatinine - Follow I/Os - Watch electrolytes, creatinine closely 01/11 - Creat 1.39- improved - Continue IVF - Repeat labs at 1400 non-concerning Code(s): N17.9 - ACUTE KIDNEY FAILURE, UNSPECIFIED (2) Acute metabolic acidosis Current Visit: Yes Status: Acute Assessment & Plan: Secondary to NAT versus myalgias 1. Switch IVFs from NS to bicarb drip 2. ABG prn 01/11 - Bicarb gtt stopped - CO2 WNL - Cont IVF Code(s): E87.21 - ACUTE METABOLIC ACIDOSIS (3) Dehydration Current Visit: Yes Status: Acute Assessment & Plan: - Anion gap 18.5 - Cont IVF Code(s): E86.0 - DEHYDRATION (4) Hypercalcemia Current Visit: Yes Status: Resolved Assessment & Plan: - resolved Code(s): E83.52 - HYPERCALCEMIA (5) Vomiting Current Visit: Yes Status: Resolved Qualifiers: Vomiting type: unspecified Nausea presence: with nausea Qualified Code(s): R11.2 - Nausea with vomiting, unspecified Assessment & Plan: - resolved - Phenergan PRN Code(s): R11.10 - VOMITING, UNSPECIFIED - Discharge Discharge Date: 01/12/24 Disposition: Home, Self-Care Condition: Stable Prescriptions: No Action No Reportable Medications [No Reported Medications] Follow up with: DOCTOR,NO FAMILY [Primary Care Provider] - Call for Appointment
== END 2024-01-12 15:38 | disposition home or self-care (01) ==
LOC: ED 20:13 → MED SURG 22:32
PROVIDERS: ADMIT Internal Medicine Nephrology; ATTEND Internal Medicine Nephrology
DX: N17.9 Acute kidney failure, unspecified (principal); E87.21 Acute metabolic acidosis; E86.0 Dehydration; E83.52 Hypercalcemia; R11.10 Vomiting, unspecified; F17.200 Nicotine dependence, unspecified, uncomplicated
CPT/HCPCS: 0241U; 36415; 80053; 82550; 83690; 85025; 85027; 96374; 96375; 99285; G0378; Q3014; J1650; J2270; J2405; A9270-GY